=== PATIENT | female | born 1985 | race African-American/Black ===

== ENCOUNTER 2018-12-28 15:21 | Emergency (ER) | payer MEDICAID, OTHER, SELFPAY ==
[~2018-12-28] VITALS: Ht 144.8 cm; Wt 125.2 kg
[2018-12-28 15:32] VITALS: BP 159/98
[2018-12-28] MEDS ORDERED: methylPREDNISolone SOD SUCC PF 125 MG/2 ML VIAL. IM ONE (15:45)
[2018-12-28] MEDS ORDERED: IPRATRPIUM/ALBUTEROL 0.5/2.5MG 3 ML NEBU. NEB ONE (15:45)
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
[2018-12-28] MEDS ORDERED: METH4TAB2 PO (16:15)
== END 2018-12-28 16:23 | disposition home or self-care (01) ==
LOC: ER 15:21
DX: J45.901 Unspecified asthma with (acute) exacerbation (principal); E66.01 Morbid (severe) obesity due to excess calories; Z68.43 Body mass index [BMI] 50.0-59.9, adult
CPT/HCPCS: 94640; 96372; 99283; J2930; J7620